=== PATIENT | male | born 1965 | race Caucasian/White ===

== ENCOUNTER 2018-05-17 11:29 | Emergency (ER) | payer OTHER ==
--- NOTE | 2018-05-17 12:45 | EDM.PDOC ---
ED HPI GENERAL MEDICAL PROBLEM - General Chief Complaint: Lower Extremity Injury/Pain Stated Complaint: RIGHT HIP PAIN Time Seen by Provider: 05/17/18 11:40 Source of Information: Reports: Patient History Limitations: Reports: No Limitations - History of Present Illness INITIAL COMMENTS - FREE TEXT/NARRATIVE: The patient presents with right hip pain. This started about 2 weeks ago. He does not remember a specific instance of hurting his hip. 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 These actions make it worse. He has no back pain, numbness or weakness down his leg. Onset: Gradual Duration: Week(s): (2) Location: Reports: Lower Extremity, Right (hip) Quality: Reports: Sharp Severity: Moderate Improves with: Reports: Immobilization Worsens with: Reports: Movement Associated Symptoms: Reports: No Other Symptoms Right Hip Pain Score (Numeric/FACES): 8 - Related Data Allergies Allergy/AdvReac Type Severity Reaction Status Date / Time Penicillins Allergy Blisters Verified 05/17/18 11:41 Home Meds: Home Meds predniSONE [Prednisone] 40 mg PO DAILY #10 tablet 05/17/18 [Rx] Past Medical History Cardiovascular History: Reports: High Cholesterol, Hypertension Gastrointestinal History: Reports: GERD Musculoskeletal History: Reports: Arthritis Neurological History: Reports: Concussion Psychiatric History: Reports: Addiction, Anxiety, Panic Attack Endocrine/Metabolic History: Reports: Obesity/BMI 30+ - Past Surgical History GI Surgical History: Reports: Appendectomy, Colonoscopy Musculoskeletal Surgical History: Reports: Arthroscopic Knee Social & Family History - Family History Family Medical History: Noncontributory - Tobacco Use Smoking Status *Q: Former Smoker Used Tobacco, but Quit: Yes Month/Year Tobacco Last Used: 2015 - Recreational Drug Use Recreational Drug Use: Yes Drug Use in Last 12 Months: No Recreational Drug Type: Reports: Amphetamines (Speed), Cocaine, Marijuana/ Hashish, Methamphetamine Review of Systems - Review of Systems Review Of Systems: See Below Constitutional: Reports: No Symptoms Eyes: Reports: No Symptoms Ears: Reports: No Symptoms Nose: Reports: No Symptoms Mouth/Throat: Reports: No Symptoms Respiratory: Reports: No Symptoms Cardiovascular: Reports: No Symptoms GI/Abdominal: Reports: No Symptoms Genitourinary: Reports: No Symptoms Musculoskeletal: Reports: Other (Right hip pain) ED EXAM, GENERAL - Physical Exam Exam: See Below Exam Limited By: No Limitations General Appearance: Alert, No Apparent Distress Ears: Normal External Exam Nose: Normal Inspection Head: Atraumatic, Normocephalic Neck: Normal Inspection Respiratory/Chest: No Respiratory Distress Extremities: Other (Not much pain with palpation to the right hip but he does have pin with internal and external rotation of his leg.) Course - Vital Signs Last Recorded V/S: Last Vital Signs Temp 98.4 F 05/17/18 11:37 Pulse 79 05/17/18 11:37 Resp 20 05/17/18 11:37 BP 135/99 H 05/17/18 11:37 Pulse Ox 98 05/17/18 11:37 - Orders/Labs/Meds Orders: Active Orders 24 hr Category Date Time Status Hip Min 2V or 3V w Pelvis Rt [CR] Stat Exams 05/17/18 11:51 Taken - Re-Assessments/Exams Free Text/Narrative Re-Assessment/Exam: 05/17/18 12:43 I ordered an x-ray and is shows mild arthritis. I will get him on some prednisone for a few days. I will refer him to Dr Rizvi for further management if he needs it. Departure - Departure Time of Disposition: 12:45 Disposition: Home, Self-Care 01 Condition: Good Clinical Impression: Osteoarthritis of right hip Qualifiers: Osteoarthritis type: primary Qualified Code(s): M16.11 - Unilateral primary osteoarthritis, right hip - Discharge Information *PRESCRIPTION DRUG MONITORING PROGRAM REVIEWED*: Not Applicable *COPY OF PRESCRIPTION DRUG MONITORING REPORT IN PATIENT CULLEN: Not Applicable Prescriptions: predniSONE [Prednisone] 40 mg PO DAILY #10 tablet Referrals: PCP,Not In Area [Primary Care Provider] - Noel Rizvi MD [Physician] - 1 Week Additional Instructions: Take the prednisone daily for 5 days. You should not take any motrin, aleve or other antiinflammatories while taking the prednisone. They can hurt your stomach. Take tylenol until you are down with it. Follow up with Dr Rizvi in a week or 2 if you are not better. - My Orders Last 24 Hours: My Active Orders 05/17/18 11:51 Hip Min 2V or 3V w Pelvis Rt [CR] Stat - Assessment/Plan Last 24 Hours: My Active Orders 05/17/18 11:51 Hip Min 2V or 3V w Pelvis Rt [CR] Stat
--- NOTE | 2018-05-18 08:52 | CR ---
Pelvis and right hip: AP view of the pelvis was obtained as well as frog leg lateral view of the right hip. Comparison: No previous study is available. Mild joint space narrowing is seen within the right hip. Sacroiliac joints on the right side is slightly narrowed. No acute fracture or other bony abnormality is identified. Impression: 1. Slight joint space narrowing within the right hip and right sacroiliac joint. Diagnostic code #2
== END 2018-05-17 13:00 | disposition home or self-care (01) ==
LOC: JD.ED 11:29
DX: M16.11 Unilateral primary osteoarthritis, right hip (principal); I10 Essential (primary) hypertension; E78.00 Pure hypercholesterolemia, unspecified; K21.9 Gastro-esophageal reflux disease without esophagitis; Z88.0 Allergy status to penicillin; Z87.891 Personal history of nicotine dependence
CPT/HCPCS: 73502-26-RT; 73502-RT; 99283